=== PATIENT | female | born 1940 | race Caucasian/White ===

== ENCOUNTER → 2016-10-10 | Outpatient (CLI) | payer OTHER, BC ==
[~2016-10-10] MED LIST: ASPCH81X PO; CALC-578 PO; CETI10TA84 PO; COEN100C11 PO; FMR25 PO; LEVO25TA5 PO; MAGN500C PO; MULTTAB58 PO; NORT10CA3 PO; PRED20TA PO
[2016-10-10 11:21] LABS: ALT/SGPT 25 U/L (12-78); CREATININE 0.95 mg/dl (0.60-1.20)
[2016-10-10 11:24] LABS: ALKALINE PHOSPHATASE 73 U/L (45-117); AST/SGOT 19 U/L (15-37)
== END | disposition home or self-care (01) ==
LOC: C.LAB1850 09:38
PROVIDERS: ATTEND Internal Medicine Rheumatology
DX: R29.898 Other symptoms and signs involving the musculoskeletal system (principal); M21.70 Unequal limb length (acquired), unspecified site; E55.9 Vitamin D deficiency, unspecified; M79.606 Pain in leg, unspecified

== ENCOUNTER → 2017-03-26 | Outpatient (CLI) | payer OTHER, BC ==
[~2017-03-26] MED LIST changes: -PRED20TA PO
== END | disposition home or self-care (01) ==
LOC: C.MAMM 08:22
PROVIDERS: ATTEND Nurse Practitioner Family
DX: C50.919 Malignant neoplasm of unspecified site of unspecified female breast (principal); M85.851 Other specified disorders of bone density and structure, right thigh; M85.852 Other specified disorders of bone density and structure, left thigh

== ENCOUNTER → 2017-06-26 | Outpatient (CLI) | payer OTHER, BC ==
[2017-06-26 15:02] VITALS: BP 159/73; PULSE 81; TEMP 36.9; O2SAT 95
--- NOTE | 2017-06-26 15:51 | Radiation Oncology Follow-Up ---
Radiation Oncology Follow-Up Date of Visit Jun 26, 2017. Reason For Visit Annual follow-up Radiation Completion Date 11/16/14 (Hypo) Diagnosis (1) Breast cancer Status: Resolved Onset Date: 07/13/2014 Histology Subtype: ductal Stage: l Permanent Comment: Status post biopsy 07/13/2014 revealing ductal carcinoma Status post lumpectomy and sentinel lymph node biopsy 08/16/2014 Stage [id number], estrogen receptor positive, progesterone receptor positive, HER -2/tao negative Status post completion of radiation therapy 11/16/2014 received 5000 cGy utilizing hypo-fractionation Last Edited By: Dayna Puente on Jun 21, 2015 16:27 History of Present Illness This is a 77-year-old woman referred to our office following lumpectomy for biopsy-proven breast cancer. Patient noted a mass in the left breast and lower outer quadrant density in the of May. She had a mammogram in June with an associated ultrasound. Needle biopsy of the suspicious area confirmed invasive ductal carcinoma. Patient's tumor appeared localized. She went on to have lumpectomy in August with partial mastectomy and node sampling. Pathology revealed invasive ductal carcinoma. The tumor was 18 mm in greatest dimension. [place] lymph node biopsy revealed no metastatic disease in 4 lymph nodes. The receptor status was estrogen receptor positive, progesterone receptor positive, and HER-2/tao negative. The margins were noted to be clear. She was staged at pT1c N0. Following recovery of her surgery she was referred to our office to discuss radiation therapy. She was also referred to Dr. Echeverria for medical oncology evaluation and discussion of hormonal manipulation after radiation. The patient was well read and had a good understanding of the plan of treatment. All options of radiation therapy were discussed with her. She underwent a CT simulation and was found to be a candidate for hypo-fractionation. She completed radiation therapy 11/16/2014 received 7000 cGy. Interim History She's been doing well over this past year. She notes no changes to her breast. She's detected no masses or tenderness no change in the axilla. She's had no swelling of her arm. She is up-to-date on mammography. She continues on Femara. Denies any difficulty with hot flashes. Allergies Coded Allergies: Sulfamethoxazole w/Trimethoprim (Verified Allergy, Unknown, Hives, itching , swollen lips, 06/26/16) Home Medications Scheduled Aspirin (Aspirin Chewable), 81 MG PO 3XWK Calcium Carbonate-Vitamin D (Calcium 600+D), 1 TABLETS PO BID Coenzyme Q10 (Ubidecarenone) (Coq-10), 1 CAP PO BID Letrozole (Femara), 2.5 MG PO DAILY Levothyroxine Sodium (Levothyroxine Sodium), 1 TAB PO QAM Magnesium Oxide (Mg Supplement (Magnesium), 1 TAB PO PM Multiple Vitamin (Multivitamin), 1 TABLET PO QAM Nortriptyline Hcl (Pamelor), 10 MG PO HS Review of Systems Gastrointestinal: Symptoms: WNL Oral: Symptoms: No Problems Respiratory: Symptoms: WNL Urinary: Symptoms: WNL Comments: Recent UTI that she was given bactrim for - allergic reaction Skin: Symptoms: No Problems Breast: Right Upper Arm Measurement: 27.1 Right Mid Arm Measurement: 23.3 Right Wrist Measurement: 16.2 Left Upper Arm Measurement: 27.0 Left Mid Arm Measurement: 22.8 Left Wrist Measurement: 16.0 Arm Dominence: Right Physical Exam Vital Signs Date Time Temp Pulse Resp B/P (MAP) Pulse Ox O2 Delivery O2 Flow Rate FiO2 06/26/17 15:02 36.9 81 16 159/73 95 Fatigue: None General Appearance: no apparent distress Eyes: normal inspection, EOMI ENT: normal ENT inspection, hearing grossly normal Neck: no adenopathy Respiratory/Chest: lungs clear, no respiratory distress, no accessory muscle use Breast: Examination of the left breast reveals well-healed incisions. There are no masses or tenderness and no axillary adenopathy. She has no skin retractions or nipple changes. Using the Paris score cosmesis she has a in excellent outcome. The right breast showed no masses or tenderness no axillary adenopathy. Cardiovascular: regular rate, rhythm, no gallop, no murmur Extremities: no pedal edema Neurologic/Psychiatric: no motor/sensory deficits, alert, normal mood/affect Skin: warm/dry Additional Studies Patient: JONATHON PENALOZA [facility] Rec: [id number] Address1: [address] Address2: Acct ID: [id number] Date: 1940 Sex: F Ref Phy: Att Phy: Dayna Puente PA-C Marly Phy: Bryce Huang M.D. Inter Phy: Yudy Doty MD [facility] Zip: [place] [address] SC: Jose M.MAMM Report #: [id number] Manufacturing Lead: JANIA Diagnosis: ASYMPTOMATIC/HX BREAST CA Service Date: 08/13/16 MNE: [id number] Ordering Dr: Dayna Puente PA-C CC: Dayna Puente PA-C CONF: DICTATED BY: Yudy Doty MD MAMMOGRAPHY REPORT BILATERAL DIGITAL DIAGNOSTIC MAMMOGRAM TOMOSYNTHESIS WITH CAD: 08/13/2016 CLINICAL HISTORY: Personal history of breast cancer. TECHNIQUE: Bilateral CC and MLO 2-D digital and tomosynthesis images were obtained. Current study was also evaluated with a Computer Aided Detection (CAD ) system. COMPARISON: Comparison is made to exams dated: 08/08/2015 mammogram, 06/22/2014 mammogram, 02/07/2015 mammogram, 07/13/2014 ultrasound biopsy - [facility], 12/18/2012 mammogram, and 07/02/2007 mammogram. BREAST COMPOSITION: The tissue of both breasts is heterogeneously dense, which may obscure small masses. FINDINGS: There is expected architectural distortion in the left breast, from prior lumpectomy. Mild diffuse left breast skin thickening is decreasing compared to the 2015 mammograms. There are stable benign calcifications bilaterally. No new suspicious mass, architectural distortion or cluster of suspicious microcalcifications is seen. IMPRESSION: IMPRESSION: ACR BI-RADS CATEGORY 2: BENIGN Stable bilateral mammograms, without mammographic evidence of malignancy. A 1 year screening mammogram is recommended. The patient has been verbally notified of the results. Approximately 10% of breast cancers are not detected with mammography. A negative mammographic report should not delay biopsy if a clinically suggestive mass is present. Yudy Doty M.D. ay/:08/13/2016 10:18:32 Merchandising Execution Associate: Makenna HARVEY(Etienne)(Mark), [facility] letter sent: Normal 1/2 BI-RADS Code: ACR BI-RADS Category 2: Benign Dictated by: Yudy Doty MD Signed by: Yudy Doty MD Assessment & Plan Plan: Continue regular follow-up with medical oncology and Dr. Sena. She continues on the Femara. Continue with annual mammography. She will now resume screening mammograms. We asked her to return to our office in 1 year. She may call if she has any questions or concerns in the interim. Total Time In Follow-Up I spent 20 minutes speaking to the patient and performing examination. I spent 15 minutes reviewing information and completing this note. Copy To Ramon Ogden D.O.; Bryce Huang M.D. Problem Qualifiers (1) Breast cancer: Breast location: lower outer quadrant of breast Estrogen receptor status: positive Patient sex: female Laterality: left Qualified Codes: C50.512 - Malignant neoplasm of lower-outer quadrant of left female breast; Z17.0 - Estrogen receptor positive status [ER+]
== END | disposition home or self-care (01) ==
LOC: C.ONC 14:57
PROVIDERS: ATTEND Physician Assistant Medical
DX: Z08 Encounter for follow-up examination after completed treatment for malignant neoplasm (principal); Z92.3 Personal history of irradiation; Z85.3 Personal history of malignant neoplasm of breast

== ENCOUNTER → 2017-09-10 | Outpatient (CLI) | payer OTHER, BC ==
[~2017-09-10] MED LIST changes: -CETI10TA84 PO
--- NOTE | 2017-09-10 14:27 | MAMMOGRAPHY REPORT ---
BILATERAL DIGITAL DIAGNOSTIC MAMMOGRAM TOMOSYNTHESIS WITH CAD: 09/10/2017 CLINICAL HISTORY: Asymptomatic. Personal history of breast cancer. TECHNIQUE: Bilateral breast tomosynthesis in addition to standard 2D mammography was performed. Curr ent study was also evaluated with a Computer Aided Detection (CAD) system. COMPARISON: Comparison is made to exams dated: 08/13/2016 mammogram, 08/08/2015 mammogram, 02/07/2015 ul trasound, 02/07/2015 mammogram, 07/13/2014 mammogram, and 07/13/2014 ultrasound biopsy - [facility]. BREAST COMPOSITION: The tissue of both breasts is extremely dense, which lowers the sensitivity of m ammography. FINDINGS: A linear scar marker overlies the lower outer left breast, denoting the skin surgical scar in the area of prior lumpectomy. There is mild persistent diffuse skin thickening of the left breast , likely related to prior treatment. There is expected architectural distortion in the left breast a t the site of prior surgery. A benign rim calcification. No new suspicious suspicious mass, unexpec doroteo architectural distortion or suspicious microcavitation's identified in the left breast. There is a 7 mm asymmetry in the medial posterior right breast only seen on the CC view, equivocal fo r a mass on the corresponding tomosynthesis images, for which additional spot compression tomosynthes is views were obtained. The additional spot compression tomosynthesis views in the medial posterior right breast demonstrate effacement of the asymmetry. The glandular pattern in this location appears very similar to the 2015 and 2014 tomosynthesis images, and the 2-D view appears very similar to [place] or 2-D mammograms dating back to 2012, therefore likely benign. No new suspicious calcifications, as ymmetries or areas of distortion are seen in the right breast. IMPRESSION: ACR BI-RADS CATEGORY 2: BENIGN Stable posttreatment changes in the left breast. No mammographic evidence of malignancy bilaterally. A 1 year bilateral tomosynthesis mammogram is recommended. The patient has been verbally notified of the results. Approximately 10% of breast cancers are not detected with mammography. A negative mammographic report should not delay biopsy if a clinically suggestive mass is present. Yudy Doty M.D. ay/:09/10/2017 10:58:39 Car Rental Service Attendant: Makenna Zhao, [facility] letter sent: Normal 10/08 BI-RADS Code: ACR BI-RADS Category 2: Benign
== END | disposition home or self-care (01) ==
LOC: C.MAMM 10:17
PROVIDERS: ATTEND Nurse Practitioner Family
DX: Z12.31 Encounter for screening mammogram for malignant neoplasm of breast (principal); Z85.3 Personal history of malignant neoplasm of breast